=== PATIENT | male | born 1985 | race African-American/Black ===

== ENCOUNTER 2025-05-12 18:46 | Emergency (ER) | payer OTHER ==
[~2025-05-12] VITALS: Ht 182.8 cm; Wt 93.0 kg
[2025-05-12] MEDS ORDERED: Albuterol Sulf/Ipratropium 3 ML VIAL NEB ONE (19:15)
[2025-05-12] MEDS ORDERED: SODIUM CHLORIDE 0.9% 1,000 ML IV ONE (19:15)
[2025-05-12 19:32] LABS: BASO # 0.1 10*3/uL (0.0-0.1); BASO % 0.5 % (0.0-1.0); EOS # 0.1 10*3/uL (0.0-0.4); EOS % 1.3 % (1.0-4.0); MEAN CELL VOLUME 89.0 fl (80.0-94.0); MEAN CORPUSCULAR HGB 29.5 pg (27.0-31.0); MEAN PLATELET VOLUME 8.7 fl (9.6-12.3); MONO # 1.2 10*3/uL (0.1-1.0); MONO % 11.8 % (3.0-9.0); NEUT # 6.5 10*3/uL (2.3-7.9); NEUT % 63.8 % (47.0-73.0); NUCLEATED RED BLOOD CELL 0.0 % (0.0-0.0); NUCLEATED RED BLOOD CELL 0.0 10*3/uL (0.0-0.0); PLATELET COUNT AUTOMATED 341 10*3/uL (130-400); RED CELL DISTRI WIDTH 11.5 % (0-14.5)
[2025-05-12 19:57] LABS: BUN 7 mg/dl (9-23)
[2025-05-12] MEDS ORDERED: POTASSIUM CHLORIDE 20 MEQ TAB PO ONE (20:15)
[2025-05-12] MEDS ORDERED: AVPAK AZITHROM250 M1 PO (21:05)
[2025-05-12] MEDS ORDERED: PREDNISONE20 M1 PO (21:05)
[2025-05-12] MEDS ORDERED: AZITHROMYCIN 250 MG TAB PO ONE (21:10)
[2025-05-12] MEDS ORDERED: ALBUTEROL 8 GM INHALER INH ONE (21:10)
== END 2025-05-12 21:08 | disposition home or self-care (01) ==
LOC: ED 18:46
PROVIDERS: Nurse Practitioner Family
DX: J45.909 Unspecified asthma, uncomplicated (principal); Z20.822 Contact with and (suspected) exposure to COVID-19; E87.6 Hypokalemia; B34.9 Viral infection, unspecified; R19.7 Diarrhea, unspecified; Z91.013 Allergy to seafood; Z88.8 Allergy status to other drugs, medicaments and biological substances

== ENCOUNTER 2025-05-14 21:20 | Emergency (ER) | payer OTHER ==
[~2025-05-14] VITALS: Ht 182.8 cm; Wt 93.0 kg
[~2025-05-14 21:20] MED LIST: AVPAK AZITHROM250 M1 PO; PREDNISONE20 M1 PO
== END 2025-05-14 22:15 | disposition left against medical advice (07) ==
LOC: ED 21:20
DX: H92.02 Otalgia, left ear (principal); Z53.21 Procedure and treatment not carried out due to patient leaving prior to being seen by health care provider